=== PATIENT | male | born 1985 | race Caucasian/White ===

== ENCOUNTER 2017-12-19 10:29 | Emergency (ER) | payer BC ==
[~2017-12-19] VITALS: Ht 188 cm; Wt 72.6 kg
[2017-12-19 11:55] VITALS: BP 119/85
== END 2017-12-19 11:58 | disposition home or self-care (01) ==
LOC: M.ERS 10:29
DX: S93.492A Sprain of other ligament of left ankle, initial encounter (principal); S93.692A Other sprain of left foot, initial encounter; S46.811A Strain of other muscles, fascia and tendons at shoulder and upper arm level, right arm, initial encounter; S50.811A Abrasion of right forearm, initial encounter; Z23 Encounter for immunization; V09.9XXA Pedestrian injured in unspecified transport accident, initial encounter; Y93.89 Activity, other specified; Y92.89 Other specified places as the place of occurrence of the external cause; Y99.8 Other external cause status